=== PATIENT | male | born 1955 | race Caucasian/White ===

== ENCOUNTER 2019-02-26 05:50 | Day surgery (SDC) | payer OTHER ==
[~2019-02-26] VITALS: Ht 172.7 cm; Wt 90.0 kg
[~2019-02-26 05:50] MED LIST: ASPI81CH; EZET10; LIVALO4 MG; LOSA50; NEBI5; NIAC500; Synthroid50 MCG
--- NOTE | 2019-02-26 08:40 | NUR ---
TO RECOVERY ROOM VIA RECLINER TR BAND INTACT WITH 10 CC AIR.
--- NOTE | 2019-02-26 08:45 | NUR ---
DR. VILLAGOMEZ HERE TO DISCUSS RESULTS.
[2019-02-26] MEDS ORDERED: Isosorbide Mono30 MG PO (08:54)
[2019-02-26] MEDS ORDERED: CLOP75 PO (08:54)
[2019-02-26] MEDS ORDERED: AMLO5 PO (09:53)
[2019-02-26] MEDS ORDERED: NITR.4SL SL (10:11)
[2019-02-26] MEDS ORDERED: LIVALO4 MG PO (10:30)
--- NOTE | 2019-02-26 10:50 | NUR ---
DISCHARGE INSTRUCTIONS GIVEN WITH VERBAL AND WRITTEN UNDERSTANDING.
--- NOTE | 2019-02-26 11:00 | NUR ---
AMBULATED TO BATHROOM TOLERATED WELL. RIGHT RADIAL SIGHT UNCHANGED.
--- NOTE | 2019-02-26 12:00 | NUR ---
PT TR BAND FULLY DEFLATED. NO BLEEDING OR HEMATOMA NOTED. VSS. NADN. CALL LIGHT WITHIN REACH.
--- NOTE | 2019-02-26 12:30 | NUR ---
Dressed for discharge. Instructions given with writte and verbal understanding.
--- NOTE | 2019-02-26 12:46 | NUR ---
TR BAND REMOVED. NO BLEEDING AT SITE. CLOTH DOT AND IMMOBILIZER APPLIED.
--- NOTE | 2019-02-26 13:00 | NUR ---
Sling applied. Discharged home via wheelchair. driving.
== END 2019-02-26 13:30 | disposition home or self-care (01) ==
LOC: MHTC 05:50
PROC: B2111ZZ Fluoroscopy of Multiple Coronary Arteries using Low Osmolar Contrast (ICD-10-PCS; principal; 2019-02-26)
PROC: 4A023N8 Measurement of Cardiac Sampling and Pressure, Bilateral, Percutaneous Approach (ICD-10-PCS; principal; 2019-02-26)
DX: I25.118 Atherosclerotic heart disease of native coronary artery with other forms of angina pectoris (principal); I10 Essential (primary) hypertension; E78.5 Hyperlipidemia, unspecified; K21.9 Gastro-esophageal reflux disease without esophagitis; E78.00 Pure hypercholesterolemia, unspecified; G47.33 Obstructive sleep apnea (adult) (pediatric); E66.9 Obesity, unspecified; Z68.41 Body mass index [BMI] 40.0-44.9, adult; Z99.89 Dependence on other enabling machines and devices; Z79.82 Long term (current) use of aspirin; Z79.02 Long term (current) use of antithrombotics/antiplatelets; Z79.899 Other long term (current) drug therapy; Z95.5 Presence of coronary angioplasty implant and graft
CPT/HCPCS: 85347; 92943; 93005; 93010; 93454; 99152; 99153; C1725; C1769; C1887; C1894; J1644; J7030; Q9967

== ENCOUNTER → 2023-01-01 | Outpatient (CLI) | payer MEDICARE, OTHER ==
[~2023-01-01] MED LIST changes: +AMLO5 PO; +CLOP75 PO; +Isosorbide Mono30 MG PO; +LIVALO4 MG PO; +NITR.4SL SL
[2023-01-01 17:28] LABS: Body Fluid Crystals NEG (NEGATIVE)
[2023-01-01 17:33] LABS: BODY FLUID RBC 0.002 M/mm3 (0-0)
[2023-01-01 17:34] LABS: RBC Count, Synovial Fluid 2000 /mm3 (0-0); WBC Count, Synovial Fluid 463 /mm3 (0-180)
[2023-01-01 17:43] LABS: Appearance, Synovial Fluid Hazy (Clear); Color, Synovial Fluid Pale Yellow (None-P Yel)
[2023-01-01 18:28] LABS: Eos, Synovial Fluid 1 % (0-2); Lymphs, Synovial Fluid 15 % (0-15); Monocytes/Macrophages, Synovia 63 % (0-65); Neutrophils, Synovial Fluid 21 % (0-24)
== END | disposition home or self-care (01) ==
LOC: LAB SHORT 16:30 → LAB 16:30
PROVIDERS: Physician Assistant Surgical
DX: M25.569 Pain in unspecified knee (principal)
CPT/HCPCS: 87205; 89051; 89060

== ENCOUNTER 2023-06-17 09:30 | Inpatient (IN) | payer MEDICARE, OTHER ==
[~2023-06-17] VITALS: Ht 169.5 cm; Wt 93.9 kg
[2023-06-17] VITALS (21 sets, daily range): BP systolic 118–158; BP diastolic 70–99
[~2023-06-17 09:30] MED LIST changes: +ELIQUIS5 M2 PO; +EUTHYROX50 MCG PO; -EZET10; +EZET10 PO; +HYDCHL25 PO; +LOSA25 PO; +METO25ER PO; +REPATHA SU140 MG/1 M SC; -Synthroid50 MCG
[2023-06-17] MEDS ORDERED: Tranexamic Acid 100 ML IV SCH (09:40)
[2023-06-17] MEDS ORDERED: Chlorhexidine Mouth Care 15 ML UDC MT SCH (09:40)
[2023-06-17] MEDS ORDERED: Acetaminophen 500 MG Tab PO SCH ×2 (09:40→16:00)
[2023-06-17] MEDS ORDERED: Vancomycin HCL 1,000 MG in NS 100 ML IV SCH (09:40)
[2023-06-17] MEDS ORDERED: CeFAZolin Sodium 2,000 MG in NS 100 ML IV SCH ×2 (09:40→21:30)
[2023-06-17] MEDS ORDERED: Ropivacaine 0.5% HCl/Pf 123.125 MG,EPINEPHrine HCL 0.25 MG,Ketorolac Tromethamine 15 MG... INFIL SCH (09:40)
[2023-06-17] MEDS ORDERED: OxyCODONE HCL 10 MG TABCR PO SCH (09:40)
[2023-06-17] MEDS ORDERED: Lactated Ringer's 1,000 ML IV SCH ×2 (09:40→13:50)
[2023-06-17] MEDS ORDERED: NITROGLYCERIN0.4 M3 SL (11:12)
[2023-06-17] MEDS ORDERED: ESOM20 PO (11:13)
[2023-06-17] MEDS ORDERED: FAMO10 PO (11:16)
--- NOTE | 2023-06-17 11:56 | NUR ---
History, Chart, Medications and Allergies reviewed before start of procedure. Patient up to Ambulate independently. Gait steady. Pre-Op teaching done. Pt verbalizes understanding. Patient confirms NPO status and agrees with scheduled surgery. Patient reports completing Chlorhexadine shower X14 prior to admission to hospital, states BID for 1 week. Surgical site prepped with 2% Chlorhexidine cloth wipe. Lungs clear T/O to Auscultation. Patient States Post-Procedure ride home has been arranged.
[2023-06-17] MEDS ORDERED: propofoL 20 ML IV ONE (13:07)
--- NOTE | 2023-06-17 13:24 | NUR ---
1250 pt begun to get "flushed and itchy head" turned vancomycin rate from 110 to 50ml/hr. gave a cold wet wash to head with good relief. 1305 pt states "feeling much better" ambulate to BR steady on feet. Voided prior to going to OR
[2023-06-17] MEDS ORDERED: FentaNYL Citrate 50 MCG/ML 2 ML Injection ONE ×2 (13:28→17:43)
[2023-06-17] MEDS ORDERED: Metoclopramide HCl 5MG / ML 2ML Vial IV PRN (13:50)
[2023-06-17] MEDS ORDERED: Magnesium Hydroxide Conc 10 ML UDC PO PRN (13:50)
[2023-06-17] MEDS ORDERED: OxyCODONE HCL 5 MG TAB PO PRN ×2 (13:50)
[2023-06-17] MEDS ORDERED: Promethazine HCl 25 MG Tab PO PRN (13:50)
[2023-06-17] MEDS ORDERED: Bisacodyl 10 MG Supp PR PRN (13:55)
[2023-06-17] MEDS ORDERED: Ondansetron HCl 2 MG / ML 2ML Vial IV PRN (13:55)
[2023-06-17] MEDS ORDERED: DiphenhydrAMINE HCL 25 MG Cap PO PRN (13:55)
[2023-06-17] MEDS ORDERED: HYDROmorphone HCl/Pf 1MG SYR IV PRN (13:55)
[2023-06-17] MEDS ORDERED: Dexamethasone Sod Phos 10 MG/ML 1ML VIAL ONE (13:57)
[2023-06-17] MEDS ORDERED: HYDROmorphone HCl/Pf 1MG SYR ONE ×2 (14:04→18:17)
[2023-06-17] MEDS ORDERED: Nitroglycerin 0.4 MG SUBL SL PRN (14:20)
[2023-06-17] MEDS ORDERED: Glycopyrrolate 0.2 MG/ML 5ML VIAL ONE (14:20)
[2023-06-17] MEDS ORDERED: Ondansetron HCl 2 MG / ML 2ML Vial ONE (16:52)
[2023-06-17] MEDS ORDERED: Ketorolac Tromethamine 15mg Vial IV SCH (18:00)
[2023-06-17] MEDS ORDERED: Ketorolac Tromethamine 30mg Vial ONE (18:08)
--- NOTE | 2023-06-17 19:18 | NUR ---
arrival PT ARRIVED TO UNIT AT 1845. AT BEDSIDE, PT IS TIRED BUT ORIENTED X4 ANSWERS QUESTIONS APPROPRIATLY. RT IN ROOM TO SET UP HOME CPAP, PT ON 3L NASAL CANULA. SATURATION AT 95% WHILE SITTING UP EATING DINNER. REPORTS PAIN CURRENTLY TOLERABLE. L KNEE WITH BRIANNA WRAP AND AQUACEL, CDI. POLAR BONNY IN PLACE. CALL LIGHT IN REACH, REPORT GIVEN TO ONCOMING RN.
[2023-06-17] MEDS ORDERED: Pantoprazole Sodium 40 MG Tab PO PRN (19:40)
[2023-06-17] MEDS ORDERED: REPATHA SURECLICK 140 MG/ML SC SCH (19:40)
[2023-06-17] MEDS ORDERED: Famotidine 20 MG Tab PO PRN (19:45)
[2023-06-17] MEDS ORDERED: Docusate Sodium 100 MG Cap PO SCH (21:00)
[2023-06-18] VITALS: BP 131/83
--- NOTE | 2023-06-18 04:56 | NUR ---
SHIFT SUMMARY S/P L TOTAL KNEE REVISION. AQUACEL DRESSING REMAINS CDI WITH POLAR PACK IN PLACE. UP TO AMBULATE/RESTROOM WITH 1 SBA USING FWW/GB. 2 CAROLA/TORADOL/TYLENOL FOR PAIN MANAGEMENT. VSS. CPAP AT [facility]. USING CALL LIGHT APPORPRIATELY.
[2023-06-18 05:05] VITALS: BP 131/80
[2023-06-18 05:59] LABS: BASOPHILS ABSOLUTE AUTO 0.02 K/mm3 (0.00-0.23); BASOPHILS PERCENT AUTO 0 % (0-2); EOSINOPHILS PERCENT AUTO 0 % (0-6); Hematocrit 37.2 % (37.0-53.0); Hemoglobin 12.5 g/dL (13.5-17.5); IMMATURE GRAN ABSOLUTE AUTO 0.11 K/mm3 (0.00-0.10); IMMATURE GRAN PERCENT AUTO 1 % (0-1); LYMPHOCYTES ABSOLUTE AUTO 0.88 K/mm3 (0.84-5.20); LYMPHOCYTES PERCENT AUTO 5 % (21-46); MONOCYTES ABSOLUTE AUTO 0.66 K/mm3 (0.16-1.47); MONOCYTES PERCENT AUTO 4 % (4-13); Mean Corpuscular HGB Conc 33.6 g/dL (31.5-36.5); Mean Corpuscular Volume 92 fL (80-100); Mean Platelet Volume 10.2 fL (9.1-12.4); NEUTROPHILS PERCENT AUTO 91 % (41-73); Platelet Count 221 K/mm3 (150-400); RDW Coefficient Variation 12.4 % (11.7-14.2); RDW Standard Deviation 42.5 fL (35.1-46.3); Red Blood Cell Count 4.03 M/mm3 (4.30-5.90); White Blood Cell Count 17.97 K/mm3 (4.00-11.30)
[2023-06-18] MEDS ORDERED: Levothyroxine Sodium 0.05 MG Tab PO SCH (06:00)
[2023-06-18 06:35] LABS: Bun/Creatinine Ratio 23.1 (12.0-20.0); Calcium, Blood 8.4 mg/dL (8.5-10.1); Creatinine, Blood 0.99 mg/dL (0.60-1.20); Potassium, Blood 4.5 mmol/L (3.5-5.5)
[2023-06-18 07:11] VITALS: BP 118/73
--- NOTE | 2023-06-18 08:41 | NUR ---
A&OX4, UP TO RECLINER CHAIR, DENIES ANY PAIN, REPORTS RUBÉN DIET WELL, EAGER TO START PT PT WANTS TO RETURN HOME TO [place] TODAY, POLAR PACK IN PLACE, CONT. TO MONITOR FOR ANY CHANGES, MEDICATE FOR PAIN PRN.
[2023-06-18] MEDS ORDERED: Ezetimibe 10 MG Tab PO SCH (09:00)
[2023-06-18] MEDS ORDERED: Metoprolol Succinate 25 MG TABCR PO SCH (09:00)
[2023-06-18] MEDS ORDERED: Losartan Potassium 25 MG Tab PO SCH (09:00)
[2023-06-18] MEDS ORDERED: HydroCHLOROthiazide 25 mg Tab PO SCH (09:00)
[2023-06-18] MEDS ORDERED: Isosorbide Mononitrate 30 MG TABCR PO SCH (09:00)
--- NOTE | 2023-06-18 10:59 | NUR ---
DC'D HOME, DC INSTRUCTIONS GIVEN, VERBALIZED UNDERSTANDING, IV DC'D, CATH INTACT.
== END 2023-06-18 10:40 | disposition home or self-care (01) | DRG 468 ==
LOC: MEDS 09:30 → PRE IP 11:00 → SURS 16:11
PROVIDERS: ADMIT Orthopaedic Surgery
PROC: 0SRD0J9 Replacement of Left Knee Joint with Synthetic Substitute, Cemented, Open Approach (ICD-10-PCS; 2023-06-17)
PROC: 0SPD0JZ Removal of Synthetic Substitute from Left Knee Joint, Open Approach (ICD-10-PCS; principal; 2023-06-17 11:00)
DX: T84.093A Other mechanical complication of internal left knee prosthesis, initial encounter (principal); I48.91 Unspecified atrial fibrillation; I10 Essential (primary) hypertension; E78.5 Hyperlipidemia, unspecified; Z79.899 Other long term (current) drug therapy; Z79.01 Long term (current) use of anticoagulants; Z79.890 Hormone replacement therapy; Z98.890 Other specified postprocedural states; Z95.5 Presence of coronary angioplasty implant and graft
CPT/HCPCS: 36415; 73560-LT; 80048; 82947; 85025; 94762; 97116; 97162; 97530; A9270; J0171; J0690; J0735; J1100; J1170; J1885; J2405; J2704; J2795; J3010; J3370; J7120